=== PATIENT | male | born 2000 | race Caucasian/White ===

== ENCOUNTER 2018-11-08 23:09 | Emergency (ER) | payer OTHER, SELFPAY ==
[2018-11-08 23:10] VITALS: BP 146/96; PULSE 95; RESP 14; TEMP 36.9; O2SAT 99; BMI 20.7
--- NOTE | 2018-11-08 23:15 | RAD_ITS ---
STUDY: X-RAY - LEFT HAND REASON FOR EXAM: Male, 18 years old. Trauma TECHNIQUE: 3 view(s) of the hand. COMPARISON: None. FINDINGS: There is fracture through the proximal shaft of the fifth proximal phalanx. No displacement. Mild dorsal angulation of the distal fracture fragment. No dislocation. Nondisplaced ununited fracture through the base of the ulnar styloid is seen, of indeterminate age. No other acute abnormalities. Normal radiocarpal articulation. Normal distal radioulnar joint. Normal visualized carpal bones. Normal carpal articulations Normal carpometacarpal articulation of the thumb. Normal second through fifth carpometacarpal joints. Normal metacarpi. Normal metacarpophalangeal joint of the thumb. Normal interphalangeal joint of the thumb. Normal proximal and distal phalanges of the thumb. Normal metacarpophalangeal joints of the second through fifth fingers. Normal proximal and distal interphalangeal joints of the second through fifth fingers. Normal phalanges of the second through fourth fingers. The soft tissue structures are unremarkable. RAD/Hand Min 3 Views IMPRESSION: Mildly angulated nondisplaced fracture of the fifth proximal phalanx. Fracture of the ulnar styloid of indeterminate age. Electronically Signed: Santino Akers MD at 23:36 EDT , Service support ,
[2018-11-09] MEDS: Doxycycline 100 MG CAPSULE PO (00:31)
--- NOTE | 2018-11-09 01:38 | ED.VISSUMM ---
- ER Visit Summary Date of Service: 11/09/18 Chief Complaint: Laceration History of Present Illness: The patient is a 18 M who is right-hand dominant. He fell when he tripped on a bed frame. He injured his left small finger at the base. Tetanus is up-to-date. Physical Examination: Exam shows a 3 cm V-shaped laceration at the base of his left fifth finger, volar side. Flexion and extension intact but painful. No deformity. Neurovascular intact distally. Test Results: X-rays show a fracture, nondisplaced at the base of the fifth proximal phalanx, angulated. Emergency Department Course and Treatment: Patient treated as an open fracture. Digital block performed. Patient tolerated this well. Wound was irrigated copiously. Closed with simple interrupted sutures. Dressing applied and he was splinted. Patient discussed with Dr. Reno. He will be treated with doxycycline. Call the office tomorrow for follow-up. Treatment Plan: As above Disposition: Discharge Impression: 1. Open fracture left fifth finger proximal phalanx This note was generated with [employer] software. It may contain incorrect words, spelling, and punctuation that were not noted in review of the chart prior to signing ED Disposition - Plan for ED Patient: Instructions: ED Laceration Hand Prescriptions: Doxycycline 100 mg PO BID #20 cap Referrals: Jimi Reno MD [STAFF PHYSICIAN] -
== END 2018-11-09 02:04 | disposition home or self-care (01) ==
PROVIDERS: Emergency Provider Emergency Medicine
DX: S62.647B Nondisplaced fracture of proximal phalanx of left little finger, initial encounter for open fracture (principal); W01.190A Fall on same level from slipping, tripping and stumbling with subsequent striking against furniture, initial encounter; Y93.9 Activity, unspecified; Y92.89 Other specified places as the place of occurrence of the external cause; Y99.8 Other external cause status
CPT/HCPCS: 12002; 73130; 99285